=== PATIENT | male | born 1960 | race Caucasian/White ===

== ENCOUNTER 2018-05-30 02:53 | Emergency (ER) | payer MEDICAID ==
[~2018-05-30] VITALS: Ht 182.9 cm; Wt 75.3 kg
[~2018-05-30 02:53] MED LIST: IBUP-1984 PO
[2018-05-30 02:56] VITALS: BP 125/89
== END 2018-05-30 03:12 | disposition left against medical advice (07) ==
LOC: ER 02:53
DX: R10.12 Left upper quadrant pain (principal); I10 Essential (primary) hypertension; J45.909 Unspecified asthma, uncomplicated; F17.200 Nicotine dependence, unspecified, uncomplicated; F14.90 Cocaine use, unspecified, uncomplicated; Z79.899 Other long term (current) drug therapy
CPT/HCPCS: 99281

== ENCOUNTER 2021-08-22 16:46 | Emergency (ER) | payer MEDICAID ==
[~2021-08-22] VITALS: Ht 182.9 cm; Wt 97.3 kg
[2021-08-22 17:11] VITALS: BP 160/114
[2021-08-22 18:45] LABS: ALANINE AMINOTRANSFERASE 25 U/L (12-78); ALBUMIN 3.7 G/DL (3.4-5.0); ALBUMIN/GLOBULIN RATIO 0.9 (1.1-1.5); ALKALINE PHOSPHATASE 91 IU/L (46-116); ANION GAP 8 (8-16); ASPARTATE AMINO TRANSFERASE 21 U/L (10-37); BILIRUBIN,TOTAL 0.3 MG/DL (0.1-1.0); BLOOD UREA NITROGEN 15 MG/DL (7-18); BUN/CREATININE RATIO 19.2 (5.4-32.0); CALCIUM 8.6 MG/DL (8.5-10.1); CHLORIDE 102 MMOL/L (99-107); CREATININE 0.78 MG/DL (0.60-1.10); GLUCOSE 103 MG/DL (70-104); POTASSIUM 3.9 MMOL/L (3.5-5.1); SODIUM 137 MMOL/L (135-145); TOTAL CARBON DIOXIDE 26.8 MMOL/L (24-32); eGFR > 90 ML/MIN
[2021-08-22 18:47] LABS: BASOPHILS % (AUTO) 0.5 % (0-1); EOSINOPHILS # (AUTO) 0.3 X10'3 (0-0.9); EOSINOPHILS % (AUTO) 6.7 % (0-6); HEMATOCRIT 43.2 % (42.0-52.0); HEMOGLOBIN 14.4 g/dl (14.0-17.9); LYMPHOCYTES # (AUTO) 1.2 X10'3 (1.1-4.8); LYMPHOCYTES % (AUTO) 24.8 % (21-51); MEAN CORPUSCULAR HEMOGLOBIN 29.1 PG (27.0-31.0); MEAN CORPUSCULAR HGB CONC 33.4 g/dL (33.0-36.5); MEAN CORPUSCULAR VOLUME 87.1 FL (78-98); MEAN PLATELET VOLUME 7.1 FL (7.4-10.4); MONOCYTES # (AUTO) 0.7 X10'3 (0-0.9); MONOCYTES % (AUTO) 14.5 % (2-12); NEUTROPHILS # (AUTO) 2.7 X10'3 (1.8-7.7); NEUTROPHILS % (AUTO) 53.5 % (42-75); PLATELET COUNT 341 X10'3 (140-440); RED BLOOD COUNT 4.96 X10'6 (4.70-6.10); RED CELL DISTRIBUTION WIDTH 13.8 % (11.5-14.5)
== END 2021-08-22 21:08 | disposition left against medical advice (07) ==
LOC: ER 16:46
DX: M79.89 Other specified soft tissue disorders (principal); Z53.21 Procedure and treatment not carried out due to patient leaving prior to being seen by health care provider
CPT/HCPCS: 36415; 71045; 80053; 83605; 83880; 85025; 87040; 93005

== ENCOUNTER 2022-01-06 11:49 | Inpatient (IN) | payer MEDICAID ==
[~2022-01-06] VITALS: Ht 180.3 cm; Wt 101.8 kg
[2022-01-06] MEDS ORDERED: normal saline 1000ml 1,000 ML IV ONE (12:10)
[2022-01-06 12:45] LABS: BASOPHILS # (AUTO) 0.1 X10'3 (0-0.2); BASOPHILS % (AUTO) 0.4 % (0-1); EOSINOPHILS # (AUTO) 0.1 X10'3 (0-0.9); EOSINOPHILS % (AUTO) 0.6 % (0-6); HEMATOCRIT 40.3 % (42.0-52.0); HEMOGLOBIN 13.6 g/dl (14.0-17.9); LYMPHOCYTES # (AUTO) 1.5 X10'3 (1.1-4.8); LYMPHOCYTES % (AUTO) 11.1 % (21-51); MEAN CORPUSCULAR HGB CONC 33.7 g/dL (33.0-36.5); MEAN CORPUSCULAR VOLUME 85.9 FL (78-98); MEAN PLATELET VOLUME 7.7 FL (7.4-10.4); MONOCYTES # (AUTO) 1.9 X10'3 (0-0.9); MONOCYTES % (AUTO) 13.8 % (2-12); NEUTROPHILS # (AUTO) 10.2 X10'3 (1.8-7.7); NEUTROPHILS % (AUTO) 74.1 % (42-75); PLATELET COUNT 281 X10'3 (140-440); RED BLOOD COUNT 4.69 X10'6 (4.70-6.10); RED CELL DISTRIBUTION WIDTH 14.4 % (11.5-14.5); WHITE BLOOD COUNT 13.7 X10'3 (4.5-11.0)
[2022-01-06] MEDS ORDERED: diltiazem 5mg/ml 5ml inj. IV ONE (12:55)
[2022-01-06 13:20] LABS: ALANINE AMINOTRANSFERASE 55 U/L (12-78); ALBUMIN 3.9 G/DL (3.4-5.0); ALBUMIN/GLOBULIN RATIO 1.2 (1.1-1.5); ALKALINE PHOSPHATASE 57 IU/L (46-116); ANION GAP 13 (8-16); ASPARTATE AMINO TRANSFERASE 156 U/L (10-37); BILIRUBIN,TOTAL 1.3 MG/DL (0.1-1.0); BLOOD UREA NITROGEN 36 MG/DL (7-18); BUN/CREATININE RATIO 25.9 (5.4-32.0); CALCIUM 8.7 MG/DL (8.5-10.1); CHLORIDE 103 MMOL/L (99-107); CREATININE 1.39 MG/DL (0.60-1.10); GLUCOSE 95 MG/DL (70-104); POTASSIUM 3.8 MMOL/L (3.5-5.1); SODIUM 140 MMOL/L (135-145); TOTAL CARBON DIOXIDE 24.1 MMOL/L (24-32); TOTAL PROTEIN 7.2 G/DL (6.4-8.2); eGFR 52 ML/MIN
[2022-01-06] MEDS: diltiazem-NS 100mg/100ml 100 ML IV SCH ×3 (14:00→14:45)
[2022-01-06] MEDS ORDERED: acetaminophen 325mg tablet PO PRN ×2 (14:30)
[2022-01-06] MEDS ORDERED: magnesium 4gm in 100ml NS 100 ML IV PRN (14:30)
[2022-01-06] MEDS ORDERED: magnesium 2GM in 50ml NS 50 ML IV PRN (14:30)
[2022-01-06] MEDS ORDERED: POTASSIUM BICARB 20meq eff tab 20 MEQ TABLET.EFF PO PRN ×2 (14:30)
[2022-01-06] MEDS ORDERED: bisacodyl 10mg suppository rectal RC PRN (14:30)
[2022-01-06] MEDS ORDERED: magnesium Cl slow-release 64mg tablet PO PRN (14:30)
[2022-01-06] MEDS ORDERED: potassium CL 10mEq/100ml bag 100 ML IV PRN (14:30)
[2022-01-06] MEDS ORDERED: ondansetron/PF 4mg/2ml inj IV PRN (14:30)
[2022-01-06] MEDS: normal saline 1000ml 1,000 ML IV SCH ×4 (14:30→20:01)
[2022-01-06] MEDS ORDERED: OXYB5TAB16 PO (14:53)
--- NOTE | 2022-01-06 15:43 | NUR ---
Patient in room ED 1. I have received report from PATRICIA KLEIN, and had the opportunity to ask questions and assume patient care.
[2022-01-06 16:07] LABS: URINE AMPHETAMINE SCREEN POSITIVE (Neg); URINE BARBITUATE SCREEN NEGATIVE (Neg); URINE BENZODIAZEPINES SCREEN NEGATIVE (Neg); URINE CANNABINOID SCREEN NEGATIVE (Neg); URINE COCAINE SCREEN NEGATIVE (Neg); URINE METHADONE SCREEN NEGATIVE (Neg); URINE OPIATE SCREEN POSITIVE (Neg); URINE PHENCYCLIDINE SCREEN NEGATIVE (Neg)
[2022-01-06 16:20] VITALS: BP 123/68
[2022-01-06 18:00] VITALS: BP 99/68
--- NOTE | 2022-01-06 18:35 | NUR ---
Change of shift, RN assumed pt care @1830. During handoff, off going RN noted IV out. pt educated that he would need a new IV for fluids and IV cardizem d/t afib 120-130s. Pt agitated and refusing new IV access, unwilling to accept education at this time. MD James paged. pt remains on monitor. safely in bed, close to nursing station. call light within reach. awaiting call back from . Addendum: 01/06/22 at 1941 by Evelin Wallace - Traveler RN pt agreeable to IV insertion at this time. x2 RNs attempted without success. awaiting resource RN to attempt. MD james called back aware of situation. cardiology to consult in AM. prefers to continue to attempt IV access. pt A&Ox4. HR 110s-130s. BP 104/71
--- NOTE | 2022-01-06 18:42 | NUR ---
Problems reprioritized. Patient report given, questions answered & plan of care reviewed with PATRICIA NJ.
[2022-01-06] MEDS: K and/or MAG REPLACEMENT MC SCH (18:49)
[2022-01-06] MEDS: heparin, porcine 5000 units/ml vial SQ SCH (19:43)
[2022-01-06 20:00] VITALS: BP 125/86
[2022-01-06 20:03] VITALS: BP 105/78
[2022-01-06] MEDS ORDERED: temazepam 15mg capsule PO PRN (21:00)
[2022-01-06 22:20] VITALS: BP 96/73
[2022-01-07] VITALS (10 sets, daily range): BP systolic 95–111; BP diastolic 61–74
[2022-01-07] MEDS: normal saline 1000ml 1,000 ML IV SCH (04:47)
--- NOTE | 2022-01-07 06:49 | NUR ---
Patient in room PCU 3017. I have received report from PATRICIA NJ, and had the opportunity to ask questions and assume patient care.
[2022-01-07 06:59] LABS: BASOPHILS # (AUTO) 0.1 X10'3 (0-0.2); HEMOGLOBIN 13.6 g/dl (14.0-17.9); MONOCYTES # (AUTO) 1.2 X10'3 (0-0.9)
[2022-01-07 07:03] LABS: EOSINOPHILS # (AUTO) 0.5 X10'3 (0-0.9); LYMPHOCYTES # (AUTO) 2.2 X10'3 (1.1-4.8); LYMPHOCYTES % (AUTO) 23.5 % (21-51); MEAN CORPUSCULAR HEMOGLOBIN 29.8 PG (27.0-31.0); MEAN CORPUSCULAR HGB CONC 34.1 g/dL (33.0-36.5); MEAN CORPUSCULAR VOLUME 87.5 FL (78-98); MEAN PLATELET VOLUME 7.8 FL (7.4-10.4); MONOCYTES % (AUTO) 13.6 % (2-12); NEUTROPHILS # (AUTO) 5.1 X10'3 (1.8-7.7); NEUTROPHILS % (AUTO) 55.9 % (42-75); PLATELET COUNT 216 X10'3 (140-440); RED BLOOD COUNT 4.58 X10'6 (4.70-6.10); RED CELL DISTRIBUTION WIDTH 14.4 % (11.5-14.5); WHITE BLOOD COUNT 9.2 X10'3 (4.5-11.0)
[2022-01-07 07:19] LABS: ALANINE AMINOTRANSFERASE 47 U/L (12-78); ALBUMIN 3.3 G/DL (3.4-5.0); ALKALINE PHOSPHATASE 54 IU/L (46-116); ANION GAP 8 (8-16); ASPARTATE AMINO TRANSFERASE 102 U/L (10-37); BILIRUBIN,TOTAL 0.8 MG/DL (0.1-1.0); BLOOD UREA NITROGEN 30 MG/DL (7-18); BUN/CREATININE RATIO 34.1 (5.4-32.0); CALCIUM 8.2 MG/DL (8.5-10.1); CHLORIDE 108 MMOL/L (99-107); CHOL/HDL RATIO 3.8 (0.00-4.99); CHOLESTEROL 184 MG/DL (0-200); CREATININE 0.88 MG/DL (0.60-1.10); GLUCOSE 113 MG/DL (70-104); HDL CHOLESTEROL 48 MG/DL (35-60); LDL CHOLESTEROL 106 MG/DL (50-100); POTASSIUM 3.8 MMOL/L (3.5-5.1); SODIUM 140 MMOL/L (135-145); TOTAL CARBON DIOXIDE 24.2 MMOL/L (24-32); TOTAL PROTEIN 6.6 G/DL (6.4-8.2); TRIGLYCERIDES 72 MG/DL (20-135); eGFR 88 ML/MIN
[2022-01-07] MEDS: heparin, porcine 5000 units/ml vial SQ SCH (07:53)
[2022-01-07] MEDS: diltiazem-NS 100mg/100ml 100 ML IV SCH (07:54)
[2022-01-07 07:57] LABS: LARGE PLATELETS FEW; PLATELET ESTIMATE NORMAL
[2022-01-07] MEDS: K and/or MAG REPLACEMENT MC SCH (08:00)
[2022-01-07] MEDS ORDERED: guaiFENesin/DM/phenylephrine syrup 120ml bottle PO PRN (10:10)
[2022-01-07] MEDS ORDERED: guaiFENesin/DM 10ml UD oral syrup PO PRN (10:36)
[2022-01-07] MEDS ORDERED: albuterol 2.5 MG/3 ML nebule NEB SCH (12:00)
--- NOTE | 2022-01-07 13:15 | NUR ---
PAGE SENT [id number], WILL TOUSSAINT, PT IS AWAITING BREATHING TREATMENT. THANK YOU, JESSE, [phone]
[2022-01-07] MEDS ORDERED: diltiazem 30mg tablet PO SCH (14:00)
[2022-01-07] MEDS ORDERED: DILT30TA2 PO (14:21)
--- NOTE | 2022-01-07 15:12 | NUR ---
PAGE SENT PAGER ID: [phone] MESSAGE: [id number], BRENDAN TOUSSAINT, UNABLE TO FINALIZE PRISCRIPTION, "CONFLICTS". PT CHANGED PHARMACY TO [facility]. MAYBE THE PROBLEM? THANK YOU, JESSE [phone]
[2022-01-07] MEDS ORDERED: APIX5TAB3 PO (15:13)
--- NOTE | 2022-01-07 16:09 | NUR ---
PT STABLE FOR DISCHARGE PER MD. DISCHARGE AND FOLLOW UP INSTRUCTIONS WERE REVIEWED WITH PT WITH EMPHASIS ON DRUG/CIGARETTE CESSATION, AND FOLLOW UP CARE WITH PHYSICIANS. TELE BOX REMOVED. PIV REMOVED WITH TIP INTACT. PT AMBULATED WITH STAFF OUT OF THE HOSPITAL. PT DISCHARGED TO HOME.
== END 2022-01-07 15:57 | disposition home or self-care (01) | DRG 201 ==
LOC: ER 11:49 → ED HOLD 14:35 → PCU 3S 16:12
PROVIDERS: ADMIT Internal Medicine; ATTEND Internal Medicine
DX: I48.91 Unspecified atrial fibrillation (principal); N17.0 Acute kidney failure with tubular necrosis; J44.9 Chronic obstructive pulmonary disease, unspecified; I10 Essential (primary) hypertension; R79.89 Other specified abnormal findings of blood chemistry; B18.2 Chronic viral hepatitis C; D72.829 Elevated white blood cell count, unspecified; F15.10 Other stimulant abuse, uncomplicated; F14.90 Cocaine use, unspecified, uncomplicated; F17.210 Nicotine dependence, cigarettes, uncomplicated; R29.6 Repeated falls; Z80.9 Family history of malignant neoplasm, unspecified; Z82.5 Family history of asthma and other chronic lower respiratory diseases; Z71.6 Tobacco abuse counseling; Z71.51 Drug abuse counseling and surveillance of drug abuser; Z79.899 Other long term (current) drug therapy
CPT/HCPCS: 36415; 71045; 80053; 80061; 80305; 83605; 83880; 84443; 84484; 85008; 85025; 87040; 87081; 93005; 93306; 94640; 94760; 97116; 97161; 97530; 99285; G0378; J1644; J3490; J7030

== ENCOUNTER 2022-01-29 16:14 | Emergency (ER) | payer MEDICAID ==
[~2022-01-29] VITALS: Ht 182.9 cm; Wt 101.8 kg
[~2022-01-29 16:14] MED LIST changes: +APIX5TAB3 PO; +DILT30TA2 PO; -IBUP-1984 PO
[2022-01-29 19:16] LABS: HEMATOCRIT 44.3 % (42.0-52.0); HEMOGLOBIN 15.1 g/dl (14.0-17.9); MEAN CORPUSCULAR HEMOGLOBIN 29.6 PG (27.0-31.0); MEAN CORPUSCULAR HGB CONC 34.1 g/dL (33.0-36.5); MEAN CORPUSCULAR VOLUME 86.8 FL (78-98); PLATELET COUNT 437 X10'3 (140-440); RED BLOOD COUNT 5.11 X10'6 (4.70-6.10); RED CELL DISTRIBUTION WIDTH 13.7 % (11.5-14.5); WHITE BLOOD COUNT 11.2 X10'3 (4.5-11.0)
[2022-01-29 19:17] LABS: BASOPHILS # (AUTO) 0.1 X10'3 (0-0.2); BASOPHILS % (AUTO) 0.6 % (0-1); EOSINOPHILS # (AUTO) 0.2 X10'3 (0-0.9); EOSINOPHILS % (AUTO) 1.7 % (0-6); LYMPHOCYTES # (AUTO) 1.8 X10'3 (1.1-4.8); LYMPHOCYTES % (AUTO) 16.3 % (21-51); MONOCYTES # (AUTO) 1.4 X10'3 (0-0.9); MONOCYTES % (AUTO) 12.7 % (2-12); NEUTROPHILS # (AUTO) 7.7 X10'3 (1.8-7.7); NEUTROPHILS % (AUTO) 68.7 % (42-75)
[2022-01-29 19:34] LABS: ALANINE AMINOTRANSFERASE 25 U/L (12-78); ALBUMIN 3.9 G/DL (3.4-5.0); ALBUMIN/GLOBULIN RATIO 0.9 (1.1-1.5); ALKALINE PHOSPHATASE 71 IU/L (46-116); ANION GAP 9 (8-16); ASPARTATE AMINO TRANSFERASE 16 U/L (10-37); BILIRUBIN,TOTAL 0.5 MG/DL (0.1-1.0); BLOOD UREA NITROGEN 14 MG/DL (7-18); BUN/CREATININE RATIO 17.7 (5.4-32.0); CALCIUM 9.1 MG/DL (8.5-10.1); CHLORIDE 103 MMOL/L (99-107); CREATININE 0.79 MG/DL (0.60-1.10); GLUCOSE 82 MG/DL (70-104); POTASSIUM 4.1 MMOL/L (3.5-5.1); SODIUM 139 MMOL/L (135-145); TOTAL PROTEIN 8.1 G/DL (6.4-8.2); eGFR > 90 ML/MIN
[2022-01-29 19:37] LABS: APTT 27 SECONDS (22-32)
[2022-01-29 19:48] VITALS: BP 141/97
== END 2022-01-29 19:50 | disposition home or self-care (01) ==
LOC: ER 16:15
DX: K40.30 Unilateral inguinal hernia, with obstruction, without gangrene, not specified as recurrent (principal); F17.200 Nicotine dependence, unspecified, uncomplicated
CPT/HCPCS: 36415; 71045; 76870; 80053; 85025; 85610; 85730; 93005; 93976; 99285

== ENCOUNTER 2022-05-19 19:59 | Emergency (ER) | payer MEDICAID ==
[~2022-05-19] VITALS: Ht 180.3 cm; Wt 95.5 kg
[2022-05-19 20:02] VITALS: BP 120/93
== END 2022-05-19 22:11 | disposition left against medical advice (07) ==
LOC: ER 20:00
DX: Z00.8 Encounter for other general examination (principal); Z53.21 Procedure and treatment not carried out due to patient leaving prior to being seen by health care provider